=== PATIENT | female | born 1965 | race African-American/Black ===

== ENCOUNTER 2019-05-19 08:48 | Emergency (ER) | payer SELFPAY ==
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
== END 2019-05-19 10:02 | disposition home or self-care (01) ==
LOC: ERS 08:48
DX: S40.012A Contusion of left shoulder, initial encounter (principal); I48.91 Unspecified atrial fibrillation; V49.9XXA Car occupant (driver) (passenger) injured in unspecified traffic accident, initial encounter